=== PATIENT | female | born 1985 | race Caucasian/White ===

== ENCOUNTER 2021-08-24 11:34 | Inpatient (IN) ==
[2021-08-24] MEDS ORDERED: LABETALOL HCL IV 5 MG/ML 20ML IV STA ×2 (11:59→13:57)
[2021-08-24] MEDS ORDERED: OXYTOCIN 30 UNITS/500 ML BAG IV PRN ×2 (12:02→23:54)
[2021-08-24 12:19] LABS: Basophils # (auto) 0.04 K/uL (0-0.2); Basophils % (auto) 0.4 %; Eosinophils # (auto) 0.11 K/uL (0-0.5); Hematocrit (blood only) 35.9 % (37-47); Hemoglobin 12.5 g/dL (12.0-16.0); Immature Granulocytes # (auto) 0.15 K/uL (0.00-0.02); Immature Granulocytes % (auto) 1.4 %; Lymphocytes # (auto) 1.69 K/uL (1.2-3.4); Lymphocytes % (auto) 15.8 %; Mean Corpuscular Hemoglobin 31.3 pg (25-34); Mean Corpuscular Hgb Conc 34.8 g/dL (32-36); Mean Corpuscular Volume 89.8 fL (80-100); Mean Platelet Volume 10.5 fL (7.4-10.4); Monocytes # (auto) 0.51 K/uL (0.11-0.59); Monocytes % (auto) 4.8 %; Neutrophils # (auto) 8.19 K/uL (1.4-6.5); Neutrophils % (auto) 76.6 %; Platelet Count 117 K/uL (130-400); RDW Coefficient of Variation 12.8 % (11.5-14.5); White Blood Count 10.69 K/uL (4.8-10.8)
[2021-08-24] MEDS: LACTATED RINGER'S 1,000 ML IV SCH (12:30)
[2021-08-24 12:40] LABS: Alanine Aminotransferase 15 U/L (7-52); Albumin Globulin Ratio 1.3 (0.9-2); Albumin Level 3.5 gm/dl (3.4-5.0); Alkaline Phosphatase 130 U/L (34-104); Anion Gap 9 (3-11); Aspartate Aminotransferase 17 U/L (13-39); Bilirubin,Total 0.4 mg/dl (0.2-1.0); Blood Urea Nitrogen 8 mg/dl (6-23); Calcium 8.8 mg/dl (8.5-10.1); Carbon Dioxide 24 mmol/L (21-32); Chloride 104 mmol/L (98-107); Est GFR (African American) 139.2 ml/min; Est GFR (Non-African American) 120.1 ml/min; Globulin 2.7 gm/dl (2.5-4.0); Glucose 71 mg/dl (70-99(Fasting)); Potassium 3.6 mmol/L (3.5-5.1); Sodium 137 mmol/L (136-145); Total Protein 6.2 gm/dl (6.0-8.3)
[2021-08-24] MEDS ORDERED: miSOPROStoL 25 MCG TAB PV ONE ×2 (12:52→18:14)
[2021-08-24] MEDS ORDERED: MAG SULFATE 4GM BOLUS FROM BAG IV ONE (12:53)
[2021-08-24 12:57] LABS: Creatinine Urine Random 41.9 mg/dl; Protein Creatinine Ratio Urine 0.2 (0-0.2); Total Protein Urine Random 7.6 mg/dl (0-11.9)
[2021-08-24] MEDS ORDERED: ceFAZolin 2000MG 2,000 MG/15 ML SYR IV STA (13:03)
--- NOTE | 2021-08-24 13:03 | History & Physical Report ---
Date of Service August 24, 2021 Assessment & Plan (1) Gestational hypertension: Plan: She had 3+ DTR in the office, for me is 2+ without clonus and without significant edema, and JERONIMO has been resolving. However there is still RUQ ttp, initial labs show platelets borderline low at 117, and remaining labs pending. Initial BP x3 values in severe range, and IV labetalol x1 dose of 20mg has now been given on my order. I discussed the most likely diagnosis given all of the above being gHTN with severe features, despite some labs not being returned yet, and that this indicates for IOL and magnesium therapy. The patient accepts both. Cervix cl/th/hi indicates start with PV cytotec, which was explained to patient, who accepts. GBS antibiotics due to status unknown and gestational age; will use Ancef once in active labor given non-anaphylactic PCN allergy. Admission and Anticipated Discharge Date Admission Date: August 24, 2021 History of Present Illness Primary Care Provider: Joshua Pinzon 35yo at 35w0d with SIUP, sent from office for HTN without proteinuria but featuring RUQ pain and recent headaches and nausea. On admission, continues to have RUQ pain, the headache from this morning has waned without treatment, and nausea is not currently occurring but has been "every other day." She has good FM, no ctx and no LOF/VB. Although she had HTN in her late teens, she was normotensive off meds at the start of this and has not merited management as cHTN. Her only complication to date has been AMA (35yo). Allergies Allergy/AdvReac Type Severity Reaction Status Date / Time Penicillins Allergy Unknown Rash Verified 08/24/21 12:00 Sulfa (Sulfonamide Allergy Unknown Rash Verified 08/24/21 12:00 Antibiotics) Home Medications Medication Instructions Recorded Confirmed Type famotidine 20 mg tablet (Pepcid) 20 mg PO DAILY 08/24/21 08/24/21 History ondansetron HCl 4 mg tablet 4 mg PO Q6H PRN 08/24/21 08/24/21 History rirawcfy-uji-Rd-FA 1 mg 1 tab PO DAILY 08/24/21 08/24/21 History tablet sertraline 100 mg tablet (Zoloft) 200 mg PO DAILY 08/24/21 08/24/21 History Past Med/Surg History Medical History (Updated 08/24/21 @ 12:59 by Marianne Rubio MD) Hypertension history of hypertension at age 19. Was on lisinopril for approximately 2 years. Borderline HBP since Surgical History Hx of tonsillectomy [place] teeth extracted Family History Mother Breast cancer Grandfather (Paternal) Colonic polyp Other Diabetes Hypertension Osteoporosis Denies family history of Ovarian cancer Social History (Updated 02/10/21 @ 09:59 by Emily Hogan) Smoking Status: Never smoker marital status: marital status details: Jr (35) [phone] Current Living Situation: Spouse Current Living Situation Comment: lives with spouse, 1 dog. current occupational status: employed current occupation: professor @ [employer] Physical Exam Constitutional: WD/WN, vitals as above Eyes: PERRL, conjunctivae normal, anicteric sclerae ENMT: external ear and nose normal, oropharynx normal Neck: supple Respiratory: normal respiratory effort and able to speak in complete sentences; no respiratory distress Cardiovascular: Rate/Rhythm: regular rate and regular rhythm Gastrointestinal (Abdomen): Gravid / AGA, nontender at uterus but RUQ TTP and worse with inspiration bringing liver edge down to examiner's hand Musculoskeletal: no cyanosis or clubbing, extremities motor strength 5/5 Skin: no rashes, warm and dry Neurologic: patellar DTR's 2+ bilat, sensation intact Psychiatric: A+Ox3, euthymic affect Genitourinary: Speculum/Bimanual Exam: no vaginal lesions, no vaginal bleeding and uterus nontender OB Exam Abdomen: + vertex and + estimated weight (7) Manual OB Exam: + cervical dilation (closed), + cervical effacement (Thick), + station high and + amniotic fluid (No leaking evident) OB Exam Monitor Tracing: + external FHT monitor used, + external uterine monitor used and + category I Lymphatic: no cervical or axillary lymphadenopathy Results & Data Results & Data ([facility]) Vital Signs (Past 12 Hours) Vital Signs Pulse BP 08/24/21 12:51 73 154/106 H 08/24/21 12:47 73 170/115 H 08/24/21 12:41 78 173/120 H 08/24/21 12:37 71 170/116 H 08/24/21 12:22 62 169/108 H 08/24/21 12:07 67 162/108 H 08/24/21 11:47 74 172/108 H 08/24/21 11:46 75 172/110 H Laboratory Results Laboratory Results - last 24 hr 08/24/21 08/24/21 08/24/21 12:09 12:09 Unknown WBC 10.69 RBC 4.00 L Hgb 12.5 Hct 35.9 L MCV 89.8 MCH 31.3 MCHC 34.8 RDW Std Deviation 41.0 RDW Coeff of Amado 12.8 Plt Count 117 L MPV 10.5 H Immature Gran % (Auto) 1.4 Neut % (Auto) 76.6 Lymph % (Auto) 15.8 [place] % (Auto) 4.8 Eos % (Auto) 1.0 Baso % (Auto) 0.4 Neut # (Auto) 8.19 H Lymph # (Auto) 1.69 [place] # (Auto) 0.51 Eos # (Auto) 0.11 Baso # (Auto) 0.04 Immature Gran # (Auto) 0.15 H Sodium 137 Potassium 3.6 Chloride 104 Carbon Dioxide 24 Anion Gap 9 BUN 8 Creatinine 0.57 L Est Cr Clr Drug Dosing Not Reportable Est GFR ( Amer) 139.2 Est GFR (Non-Af Amer) 120.1 BUN/Creatinine Ratio 14.0 Glucose 71 Calcium 8.8 Total Bilirubin 0.4 AST 17 ALT 15 Alkaline Phosphatase 130 H Total Protein 6.2 Albumin 3.5 Globulin 2.7 Albumin/Globulin Ratio 1.3 Ur Random Creatinine 41.9 U Random Total Protein 7.6 Protein/Creatinin Ratio 0.2 SARS-CoV-2, RNA, NAAT 08/24/21 Unknown WBC RBC Hgb Hct MCV MCH MCHC RDW Std Deviation RDW Coeff of Amado Plt Count MPV Immature Gran % (Auto) Neut % (Auto) Lymph % (Auto) [place] % (Auto) Eos % (Auto) Baso % (Auto) Neut # (Auto) Lymph # (Auto) [place] # (Auto) Eos # (Auto) Baso # (Auto) Immature Gran # (Auto) Sodium Potassium Chloride Carbon Dioxide Anion Gap BUN Creatinine Est Cr Clr Drug Dosing Est GFR ( Amer) Est GFR (Non-Af Amer) BUN/Creatinine Ratio Glucose Calcium Total Bilirubin AST ALT Alkaline Phosphatase Total Protein Albumin Globulin Albumin/Globulin Ratio Ur Random Creatinine U Random Total Protein Protein/Creatinin Ratio SARS-CoV-2, RNA, NAAT NEGATIVE PG Care Time/CCT Total # of Minutes Spent Total Time Spent with Patient: Total time spent is greater than 50% in coordination of care (as documented) at patient's floor/unit and/or counseling patient: Coding Level of Care Code None Diagnoses Gestational hypertension O13.9
[2021-08-24] MEDS: MAGNESIUM SULFATE / WTR 40 GM/1,000 ML BAG IV SCH (13:49)
[2021-08-24] MEDS: ACETAMINOPHEN 325 MG TAB PO PRN ×2 (18:21→22:30)
--- NOTE | 2021-08-24 18:21 | Labor Progress Brief Note ---
Date of Service August 24, 2021 Subjective Tolerated first dose of cytotec with minimal discomfort at all. Hungry, though, and hoping she can have dinner if we are still a long ways from delivery. Feeling good FM. No LOF or VB. Assessment & Plan (1) Gestational hypertension: Plan: Patient made appropriate change after 1st dose cytotec. Will have dinner, then receive 2nd dose cytotec after she has eaten. BP has been almost all below the severe range, and no further labetalol after first 2 doses shortly after she arrived. Has occasional H/A that does not correlate with worst BP, and will place prn tylenol order for that. Plan: Has made some appropriate change with 1st dose, can have dinner tray then place 2nd dose cytotec. BP has been almost all below severe range, no further labetalol given after 1st 2 doses right after admission. Patient has occasional mild JERONIMO which does not correlate w/ worst BP, and will receive tylenol prn order. Admission and Anticipated Discharge Date Admission Date: August 24, 2021 Physical Exam Genitourinary: cl/75%/-3 FHT Cat 1 [place] rare ctx Results & Data ([facility]) Vital Signs (Past 12 Hours) Vital Signs Temp Pulse Resp BP 08/24/21 18:13 76 140/88 08/24/21 18:00 75 155/90 H 08/24/21 17:43 80 135/87 08/24/21 17:28 77 140/79 08/24/21 17:13 83 148/94 H 08/24/21 17:03 98.1 F 08/24/21 17:00 98.1 F 08/24/21 16:58 83 146/90 H 08/24/21 16:43 73 157/95 H 08/24/21 16:28 73 157/94 H 08/24/21 16:13 72 144/89 H 08/24/21 15:58 74 159/101 H 08/24/21 15:43 74 162/99 H 08/24/21 15:28 78 168/99 H 08/24/21 15:13 20 08/24/21 14:59 70 150/100 H 08/24/21 14:44 71 151/100 H 08/24/21 14:29 74 134/89 08/24/21 14:13 73 20 134/95 02/14/22 13:52 75 140/89 08/24/21 13:46 72 154/92 H 08/24/21 13:42 71 18 164/90 H 08/24/21 13:36 71 165/98 H 08/24/21 13:31 74 172/105 H 08/24/21 13:28 76 170/106 H 08/24/21 13:21 71 155/103 H 08/24/21 13:16 69 161/105 H 08/24/21 13:12 68 20 167/110 H 08/24/21 13:06 68 164/108 H 08/24/21 13:01 67 157/105 H 08/24/21 12:56 68 166/105 H 08/24/21 12:52 98.1 F 67 18 157/105 H 08/24/21 12:51 73 154/106 H 08/24/21 12:47 73 170/115 H 08/24/21 12:41 78 173/120 H 08/24/21 12:37 71 170/116 H 08/24/21 12:22 62 18 169/108 H 08/24/21 12:07 67 162/108 H 08/24/21 11:47 74 172/108 H 08/24/21 11:46 75 172/110 H 08/24/21 11:45 98.1 F 20 Laboratory Results Laboratory Results - last 24 hr 08/24/21 08/24/21 08/24/21 12:09 12:09 Unknown WBC 10.69 RBC 4.00 L Hgb 12.5 Hct 35.9 L MCV 89.8 MCH 31.3 MCHC 34.8 RDW Std Deviation 41.0 RDW Coeff of Amado 12.8 Plt Count 117 L MPV 10.5 H Immature Gran % (Auto) 1.4 Neut % (Auto) 76.6 Lymph % (Auto) 15.8 [place] % (Auto) 4.8 Eos % (Auto) 1.0 Baso % (Auto) 0.4 Neut # (Auto) 8.19 H Lymph # (Auto) 1.69 [place] # (Auto) 0.51 Eos # (Auto) 0.11 Baso # (Auto) 0.04 Immature Gran # (Auto) 0.15 H Sodium 137 Potassium 3.6 Chloride 104 Carbon Dioxide 24 Anion Gap 9 BUN 8 Creatinine 0.57 L Est Cr Clr Drug Dosing Not Reportable Est GFR ( Amer) 139.2 Est GFR (Non-Af Amer) 120.1 BUN/Creatinine Ratio 14.0 Glucose 71 Calcium 8.8 Total Bilirubin 0.4 AST 17 ALT 15 Alkaline Phosphatase 130 H Total Protein 6.2 Albumin 3.5 Globulin 2.7 Albumin/Globulin Ratio 1.3 Ur Random Creatinine 41.9 U Random Total Protein 7.6 Protein/Creatinin Ratio 0.2 SARS-CoV-2, RNA, NAAT SARS-CoV-2, RNA, NAAT NEGATIVE Coding Level of Care Code None Diagnoses Gestational hypertension O13.9
--- NOTE | 2021-08-24 19:38 | Labor Progress Brief Note ---
Date of Service August 24, 2021 Subjective Patient with vomiting after eating dinner tray. Assessment & Plan (1) Gestational hypertension: Plan: Continue IOL. Can start Ancef once active labor (with pit or rom), continue magnesium, epidural on request. Admission and Anticipated Discharge Date Admission Date: August 24, 2021 Physical Exam Genitourinary: second dose cytotec placed; no cervical change from 1800 exam. FHT Cat 1 [place] rare ctx Results & Data ([facility]) Vital Signs (Past 12 Hours) Vital Signs Temp Pulse Resp BP Pulse Ox 08/24/21 19:34 82 97 08/24/21 19:30 97.7 F 18 08/24/21 19:29 81 98 08/24/21 19:28 89 133/95 08/24/21 19:24 83 98 08/24/21 18:59 95 H 163/104 H 08/24/21 18:43 72 143/93 H 08/24/21 18:28 77 158/92 H 08/24/21 18:13 76 140/88 08/24/21 18:00 75 18 155/90 H 08/24/21 17:43 80 135/87 08/24/21 17:28 77 20 140/79 08/24/21 17:13 83 148/94 H 08/24/21 17:06 20 08/24/21 17:03 98.1 F 08/24/21 17:00 98.1 F 08/24/21 16:58 83 146/90 H 08/24/21 16:43 73 20 157/95 H 08/24/21 16:28 73 157/94 H 08/24/21 16:13 72 18 144/89 H 08/24/21 15:58 74 159/101 H 08/24/21 15:43 74 20 162/99 H 08/24/21 15:28 78 168/99 H 08/24/21 15:13 20 08/24/21 14:59 70 150/100 H 08/24/21 14:44 71 18 151/100 H 08/24/21 14:29 74 134/89 08/24/21 14:13 73 20 134/95 08/24/21 13:52 75 140/89 08/24/21 13:46 72 154/92 H 08/24/21 13:42 71 18 164/90 H 08/24/21 13:36 71 165/98 H 08/24/21 13:31 74 172/105 H 08/24/21 13:28 76 170/106 H 08/24/21 13:21 71 155/103 H 08/24/21 13:16 69 161/105 H 08/24/21 13:12 68 20 167/110 H 08/24/21 13:06 68 164/108 H 08/24/21 13:01 67 157/105 H 08/24/21 12:56 68 166/105 H 08/24/21 12:52 98.1 F 67 18 157/105 H 08/24/21 12:51 73 154/106 H 08/24/21 12:47 73 170/115 H 08/24/21 12:41 78 173/120 H 08/24/21 12:37 71 170/116 H 08/24/21 12:22 62 18 169/108 H 08/24/21 12:07 67 162/108 H 08/24/21 11:47 74 172/108 H 08/24/21 11:46 75 172/110 H 08/24/21 11:45 98.1 F 20 Coding Level of Care Code None Diagnoses Gestational hypertension O13.9
[2021-08-24] MEDS: ONDANSETRON INJ 2 MG/ML 2 ML VIAL IV PRN (19:52)
--- NOTE | 2021-08-24 23:58 | Labor Progress Brief Note ---
Date of Service August 24, 2021 Subjective Patient feeling mild menstrual-like cramps. Assessment & Plan (1) Gestational hypertension: Plan: Will start pitocin, and therefore also GBS ancef. Epidural on request. BP below severe range, no current concerning s/sx, magnesium infusion continues. Admission and Anticipated Discharge Date Admission Date: August 24, 2021 Physical Exam Genitourinary: ft/80/-2 FHT Cat 1 [place] rare ctx Results & Data ([facility]) Vital Signs (Past 12 Hours) Vital Signs Temp Pulse Resp BP Pulse Ox 08/24/21 23:53 80 99 08/24/21 23:50 82 93 08/24/21 23:48 80 98 08/24/21 23:43 73 96 08/24/21 23:40 80 91 08/24/21 23:38 83 96 08/24/21 23:33 79 96 08/24/21 23:30 98.1 F 08/24/21 23:28 78 97 08/24/21 23:25 87 131/96 08/24/21 23:23 78 96 08/24/21 23:20 16 08/24/21 23:18 77 96 08/24/21 23:13 77 96 08/24/21 23:08 78 97 08/24/21 23:07 76 94 08/24/21 23:03 77 96 08/24/21 22:58 85 98 08/24/21 22:56 79 94 08/24/21 22:55 73 141/82 H 08/24/21 22:53 77 96 08/24/21 22:48 78 98 08/24/21 22:47 73 92 08/24/21 22:43 78 97 08/24/21 22:38 78 97 08/24/21 22:33 81 96 08/24/21 22:32 85 91 08/24/21 22:30 18 08/24/21 22:28 75 97 08/24/21 22:19 88 95 08/24/21 22:14 75 97 08/24/21 22:13 76 159/99 H 08/24/21 22:10 78 94 08/24/21 22:09 75 99 08/24/21 22:04 75 98 08/24/21 22:01 82 93 08/24/21 21:59 76 133/83 96 08/24/21 21:54 75 98 08/24/21 21:49 74 99 08/24/21 21:44 79 97 08/24/21 21:43 77 136/80 08/24/21 21:39 77 98 08/24/21 21:37 75 92 08/24/21 21:34 77 97 08/24/21 21:29 76 95 08/24/21 21:28 74 131/73 08/24/21 21:24 76 96 08/24/21 21:19 79 98 08/24/21 21:15 16 08/24/21 21:14 82 98 08/24/21 21:13 75 154/99 H 08/24/21 21:09 75 97 08/24/21 21:04 76 97 08/24/21 20:59 75 97 08/24/21 20:58 73 164/90 H 08/24/21 20:54 76 98 08/24/21 20:53 80 92 08/24/21 20:49 78 100 08/24/21 20:44 79 98 08/24/21 20:43 76 145/92 H 08/24/21 20:39 74 97 08/24/21 20:34 77 97 08/24/21 20:29 76 97 08/24/21 20:28 72 146/94 H 08/24/21 20:24 73 97 08/24/21 20:19 75 98 08/24/21 20:15 16 08/24/21 20:14 71 97 08/24/21 20:13 73 143/92 H 08/24/21 20:09 72 96 08/24/21 20:07 74 92 08/24/21 20:04 74 97 08/24/21 19:59 73 97 08/24/21 19:58 71 137/89 08/24/21 19:54 72 98 08/24/21 19:49 73 98 08/24/21 19:44 81 140/92 98 08/24/21 19:39 76 97 08/24/21 19:34 82 97 08/24/21 19:30 97.7 F 18 08/24/21 19:29 81 98 08/24/21 19:28 89 133/95 08/24/21 19:24 83 98 08/24/21 18:59 95 H 163/104 H 08/24/21 18:43 72 20 143/93 H 08/24/21 18:28 77 158/92 H 08/24/21 18:13 76 18 140/88 08/24/21 18:00 75 18 155/90 H 08/24/21 17:43 80 135/87 08/24/21 17:28 77 20 140/79 08/24/21 17:13 83 148/94 H 08/24/21 17:06 20 08/24/21 17:03 98.1 F 08/24/21 17:00 98.1 F 08/24/21 16:58 83 146/90 H 08/24/21 16:43 73 20 157/95 H 08/24/21 16:28 73 157/94 H 08/24/21 16:13 72 18 144/89 H 08/24/21 15:58 74 159/101 H 08/24/21 15:43 74 20 162/99 H 08/24/21 15:28 78 168/99 H 08/24/21 15:13 20 08/24/21 14:59 70 150/100 H 08/24/21 14:44 71 18 151/100 H 08/24/21 14:29 74 134/89 08/24/21 14:13 73 20 134/95 08/24/21 13:52 75 140/89 08/24/21 13:46 72 154/92 H 08/24/21 13:42 71 18 164/90 H 08/24/21 13:36 71 165/98 H 08/24/21 13:31 74 172/105 H 08/24/21 13:28 76 170/106 H 08/24/21 13:21 71 155/103 H 08/24/21 13:16 69 161/105 H 08/24/21 13:12 68 20 167/110 H 08/24/21 13:06 68 164/108 H 08/24/21 13:01 67 157/105 H 08/24/21 12:56 68 166/105 H 08/24/21 12:52 98.1 F 67 18 157/105 H 08/24/21 12:51 73 154/106 H 08/24/21 12:47 73 170/115 H 08/24/21 12:41 78 173/120 H 02/14/22 12:37 71 170/116 H 08/24/21 12:22 62 18 169/108 H 08/24/21 12:07 67 162/108 H Coding Level of Care Code None Diagnoses Gestational hypertension O13.9
[2021-08-25] MEDS: LACTATED RINGER'S 1,000 ML IV SCH ×4 (00:26→22:45)
[2021-08-25] MEDS ORDERED: diphenhydrAMINE Capsule 25 MG CAP PO ONE (00:42)
[2021-08-25] MEDS: ACETAMINOPHEN 325 MG TAB PO PRN ×3 (05:01→16:44)
[2021-08-25] MEDS: MAGNESIUM SULFATE / WTR 40 GM/1,000 ML BAG IV SCH (06:00)
--- NOTE | 2021-08-25 06:59 | Labor Progress Brief Note ---
Date of Service August 25, 2021 Subjective Tolerating pit @ 15 with minimal discomfort, sleeping when I entered the room. After awakened, she notes RUQ pain and JERONIMO have both resolved. Feels FM. No LOF or VB. Assessment & Plan (1) Gestational hypertension: Plan: Cervix not dilating despite contractions which are reaching a pattern and pit @ 15. Cervix with significant firmness, so I think it was not as ripe as it seemed, and the further we get from cytotec doses the less soft and able to dilate it has become. Offered lund bulb placement and patient accepted. monitoring was used to ensure reassuring status. The patient was verbally consented for placement of a lund for cervical ripening, with discussion of risks, benefits and alternatives. All her questions were answered. Her legs were placed in lithotomy position. A lubricated, gloved hand was used to examine the cervix. A stylet was lubricated and inserted into a lund catheter to give it stiffness, and the lund catheter was then advanced along my fingers until it reached the external cervical os. The lund was then fed forward off of the stylet, which was itself never moved beyond the external os, such that the soft catheter advanced into the uterine cavity outside of the amnion until the balloon was definitely above the internal cervical os. The balloon was then inflated using sterile water to 35cc volume. Gentle traction was used to seat the balloon downward against the internal cervical os. My hand and the stylet were removed from the vagina, and the lund was secured to the patient's leg with a standard lund holding sticker. There was no significant bleeding or leakage of fluid. The heart tones remained reassuring after this process, which the patient tolerated well. Pitocin lowered to 3 mu/min for ripening-level use, and will see what effect the addition of lund has. May continue low dose pitocin or if tolerance and ctx pattern allow, could begin to increase pitocin again while lund in situ. Will d/w oncjordyn BLAIR this morning. Admission and Anticipated Discharge Date Admission Date: August 24, 2021 Physical Exam Genitourinary: Cvx still FT/80/-2 and actually feels noticeably firmer than at 11:30pm last night. I am now unable to wiggle a finger through it. FHT Cat 1 [place] Q4min Results & Data ([facility]) Vital Signs (Past 12 Hours) Vital Signs Temp Pulse Resp BP Pulse Ox 08/25/21 06:51 74 99 08/25/21 06:46 80 99 08/25/21 06:43 81 163/107 H 08/25/21 06:41 78 100 08/25/21 06:36 80 97 08/25/21 06:26 79 97 08/25/21 06:21 77 97 08/25/21 06:16 79 97 08/25/21 06:11 81 98 08/25/21 06:06 77 16 97 08/25/21 06:01 77 98 08/25/21 05:56 73 97 08/25/21 05:51 70 96 08/25/21 05:46 75 96 08/25/21 05:41 75 98 08/25/21 05:36 77 98 08/25/21 05:35 78 155/96 H 08/25/21 05:31 76 98 08/25/21 05:26 73 99 08/25/21 05:21 73 98 08/25/21 05:16 75 98 08/25/21 05:11 76 97 08/25/21 05:10 16 08/25/21 05:06 76 97 08/25/21 05:01 78 98 08/25/21 04:57 97.9 F 18 08/25/21 04:56 86 99 08/25/21 04:51 78 98 08/25/21 04:45 78 99 08/25/21 04:40 76 16 98 08/25/21 04:39 76 89 L 08/25/21 04:35 73 99 08/25/21 04:34 76 135/94 08/25/21 04:30 74 99 08/25/21 04:25 83 99 08/25/21 04:20 74 100 08/25/21 04:15 88 99 08/25/21 04:10 72 99 08/25/21 04:05 74 99 08/25/21 04:00 74 98 08/25/21 03:55 86 100 08/25/21 03:50 84 95 08/25/21 03:48 81 162/103 H 08/25/21 03:45 81 98 08/25/21 03:40 83 99 08/25/21 03:35 85 96 02/15/22 03:30 81 18 99 08/25/21 03:25 78 98 08/25/21 03:20 80 98 08/25/21 03:15 74 98 08/25/21 03:10 72 97 08/25/21 03:05 71 98 08/25/21 03:00 71 98 08/25/21 02:55 75 97 08/25/21 02:50 74 18 99 08/25/21 02:49 97.9 F 18 08/25/21 02:48 74 163/100 H 08/25/21 02:38 76 98 08/25/21 02:33 90 98 08/25/21 02:28 75 98 08/25/21 02:23 77 97 08/25/21 02:20 16 08/25/21 02:18 74 97 08/25/21 02:13 78 98 08/25/21 02:08 74 96 08/25/21 02:03 71 97 08/25/21 01:58 75 96 08/25/21 01:53 82 96 08/25/21 01:48 77 96 08/25/21 01:47 78 130/82 08/25/21 01:43 80 95 08/25/21 01:38 81 96 08/25/21 01:33 76 96 08/25/21 01:28 74 96 08/25/21 01:23 76 97 08/25/21 01:18 79 96 08/25/21 01:15 75 16 142/85 H 08/25/21 01:13 77 96 08/25/21 01:08 77 97 08/25/21 01:03 74 97 08/25/21 00:58 84 95 08/25/21 00:53 80 97 08/25/21 00:48 78 97 08/25/21 00:47 77 92 08/25/21 00:43 80 97 08/25/21 00:38 80 96 08/25/21 00:33 84 97 08/25/21 00:28 80 96 08/25/21 00:23 97.9 F 86 16 98 08/25/21 00:18 83 94 08/25/21 00:16 85 92 08/25/21 00:15 16 08/25/21 00:13 78 97 08/25/21 00:08 79 96 08/25/21 00:03 77 97 08/24/21 23:58 74 97 08/24/21 23:53 80 99 08/24/21 23:50 82 93 08/24/21 23:48 80 98 08/24/21 23:43 73 96 08/24/21 23:40 80 91 08/24/21 23:38 83 96 08/24/21 23:33 79 96 08/24/21 23:30 98.1 F 08/24/21 23:28 78 97 08/24/21 23:25 87 131/96 08/24/21 23:23 78 96 08/24/21 23:20 16 08/24/21 23:18 77 96 08/24/21 23:13 77 96 08/24/21 23:08 78 97 08/24/21 23:07 76 94 08/24/21 23:03 77 96 08/24/21 22:58 85 98 08/24/21 22:56 79 94 08/24/21 22:55 73 141/82 H 08/24/21 22:53 77 96 08/24/21 22:48 78 98 08/24/21 22:47 73 92 08/24/21 22:43 78 97 08/24/21 22:38 78 97 08/24/21 22:33 81 96 08/24/21 22:32 85 91 08/24/21 22:30 18 08/24/21 22:28 75 97 08/24/21 22:19 88 95 08/24/21 22:14 75 97 08/24/21 22:13 76 159/99 H 08/24/21 22:10 78 94 08/24/21 22:09 75 99 08/24/21 22:04 75 98 08/24/21 22:01 82 93 08/24/21 21:59 76 133/83 96 08/24/21 21:54 75 98 08/24/21 21:49 74 99 08/24/21 21:44 79 97 08/24/21 21:43 77 136/80 08/24/21 21:39 77 98 08/24/21 21:37 75 92 08/24/21 21:34 77 97 08/24/21 21:29 76 95 08/24/21 21:28 74 131/73 08/24/21 21:24 76 96 08/24/21 21:19 79 98 0214/22 21:15 16 08/24/21 21:14 82 98 08/24/21 21:13 75 154/99 H 08/24/21 21:09 75 97 08/24/21 21:04 76 97 08/24/21 20:59 75 97 08/24/21 20:58 73 164/90 H 08/24/21 20:54 76 98 08/24/21 20:53 80 92 08/24/21 20:49 78 100 08/24/21 20:44 79 98 08/24/21 20:43 76 145/92 H 08/24/21 20:39 74 97 08/24/21 20:34 77 97 08/24/21 20:29 76 97 08/24/21 20:28 72 146/94 H 08/24/21 20:24 73 97 08/24/21 20:19 75 98 08/24/21 20:15 16 08/24/21 20:14 71 97 08/24/21 20:13 73 143/92 H 08/24/21 20:09 72 96 08/24/21 20:07 74 92 08/24/21 20:04 74 97 08/24/21 19:59 73 97 08/24/21 19:58 71 137/89 08/24/21 19:54 72 98 08/24/21 19:49 73 98 08/24/21 19:44 81 140/92 98 08/24/21 19:39 76 97 08/24/21 19:34 82 97 08/24/21 19:30 97.7 F 18 08/24/21 19:29 81 98 08/24/21 19:28 89 133/95 08/24/21 19:24 83 98 08/24/21 18:59 95 H 163/104 H Coding Level of Care Code None Diagnoses Gestational hypertension O13.9 CPT Codes Misx Procedure Codes - 38766 Placement of cervical dilator: 12346 Placement of cervical dilator ([id number]) [employer] Miscellaneous Codes Misx Procedure Codes 19121 Placement of cervical dilator
[2021-08-25] MEDS ORDERED: LABETALOL HCL IV 5 MG/ML 20ML IV STA (07:09)
[2021-08-25] MEDS: ceFAZolin 1000MG 1,000 MG/7.5 ML SYR IV PRN ×2 (08:31→16:49)
[2021-08-25] MEDS ORDERED: BETAMETH SOD PHOS/ACETATE IA 6 MG/ML IM STA (08:36)
[2021-08-25] MEDS ORDERED: SERTRALINE HCL 100 MG TABLET PO SCH (09:00)
--- NOTE | 2021-08-25 10:55 | Labor Progress Brief Note ---
Date of Service August 25, 2021 Subjective late entry saw pt closer to 9am. resting in bed. feeling some ctx. denies other complaints. Assessment & Plan (1) 35 weeks gestation of : (2) Gestational hypertension: (3) Encounter for induction of labor: (4) GBS screening not performed: Plan: induction of labor for gestational hypertension with severe features. Treated with abx for gbs unknown status. Received roids x 1. On pitocin and lund balloon in place. Will now titrate the pitocin up to achieve regular labor pattern. Then consider arom/check status of balloon. BPs thus far noted. Patient and partner aware I am taking over care. Given chance to ask questions and deny such. Admission and Anticipated Discharge Date Admission Date: August 24, 2021 Physical Exam Constitutional: WD/WN, vitals as above Genitourinary: OB Exam Monitor Tracing: + external FHT monitor used, + external uterine monitor used (irreg), + category I and + normal FHT variability pit at 3 Results & Data ([facility]) Vital Signs (Past 12 Hours) Vital Signs Temp Pulse Resp BP Pulse Ox 08/25/21 10:46 73 98 08/25/21 10:41 74 97 08/25/21 10:36 74 97 08/25/21 10:31 69 97 08/25/21 10:30 18 08/25/21 10:26 79 96 08/25/21 10:21 82 98 08/25/21 10:16 76 98 08/25/21 10:11 72 98 08/25/21 10:06 74 98 08/25/21 10:01 77 98 08/25/21 09:57 67 131/84 08/25/21 09:56 69 99 08/25/21 09:51 67 98 08/25/21 09:46 78 92 08/25/21 09:43 72 97 08/25/21 09:38 79 98 08/25/21 09:33 76 96 08/25/21 09:30 20 08/25/21 09:28 72 97 08/25/21 09:23 74 97 08/25/21 09:18 71 97 08/25/21 09:13 67 96 08/25/21 09:06 73 96 08/25/21 09:01 73 97 08/25/21 08:59 68 177/90 H 08/25/21 08:56 72 97 08/25/21 08:51 69 98 08/25/21 08:46 67 98 08/25/21 08:41 65 144/85 H 96 08/25/21 08:37 56 L 131/74 08/25/21 08:36 60 96 08/25/21 08:31 60 140/94 99 08/25/21 08:30 18 08/25/21 08:26 76 145/97 H 95 08/25/21 08:21 63 155/100 H 97 08/25/21 08:17 62 159/99 H 08/25/21 08:16 62 97 08/25/21 08:12 69 165/99 H 08/25/21 08:11 70 97 08/25/21 08:06 67 172/96 H 97 08/25/21 08:01 72 136/93 98 08/25/21 07:56 71 142/93 H 97 08/25/21 07:51 65 152/97 H 97 08/25/21 07:46 64 143/99 H 96 08/25/21 07:41 65 138/92 97 08/25/21 07:36 73 97 08/25/21 07:35 74 163/96 H 08/25/21 07:31 77 98 08/25/21 07:26 82 98 08/25/21 07:21 75 98 08/25/21 07:20 73 184/105 H 08/25/21 07:16 75 98 08/25/21 07:11 74 100 08/25/21 07:10 80 74 L 08/25/21 07:06 76 97 08/25/21 07:05 72 185/99 H 08/25/21 07:01 79 99 08/25/21 07:00 98.1 F 18 08/25/21 06:56 78 100 08/25/21 06:55 75 90 08/25/21 06:54 72 170/107 H 08/25/21 06:51 74 99 08/25/21 06:46 80 99 08/25/21 06:43 81 163/107 H 08/25/21 06:41 78 100 08/25/21 06:36 80 97 08/25/21 06:26 79 97 08/25/21 06:21 77 97 08/25/21 06:16 79 97 08/25/21 06:11 81 98 08/25/21 06:06 77 16 97 08/25/21 06:01 77 98 08/25/21 05:56 73 97 08/25/21 05:51 70 96 08/25/21 05:46 75 96 08/25/21 05:41 75 98 08/25/21 05:36 77 98 08/25/21 05:35 78 155/96 H 08/25/21 05:31 76 98 08/25/21 05:26 73 99 08/25/21 05:21 73 98 08/25/21 05:16 75 98 08/25/21 05:11 76 97 08/25/21 05:10 16 08/25/21 05:06 76 97 08/25/21 05:01 78 98 08/25/21 04:57 97.9 F 18 08/25/21 04:56 86 99 08/25/21 04:51 78 98 08/25/21 04:45 78 99 08/25/21 04:40 76 16 98 08/25/21 04:39 76 89 L 08/25/21 04:35 73 99 08/25/21 04:34 76 135/94 08/25/21 04:30 74 99 08/25/21 04:25 83 99 08/25/21 04:20 74 100 08/25/21 04:15 88 99 08/25/21 04:10 72 99 08/25/21 04:05 74 99 08/25/21 04:00 74 98 08/25/21 03:55 86 100 08/25/21 03:50 84 95 08/25/21 03:48 81 162/103 H 08/25/21 03:45 81 98 08/25/21 03:40 83 99 08/25/21 03:35 85 96 08/25/21 03:30 81 18 99 08/25/21 03:25 78 98 08/25/21 03:20 80 98 08/25/21 03:15 74 98 08/25/21 03:10 72 97 08/25/21 03:05 71 98 08/25/21 03:00 71 98 08/25/21 02:55 75 97 08/25/21 02:50 74 18 99 08/25/21 02:49 97.9 F 18 08/25/21 02:48 74 163/100 H 08/25/21 02:38 76 98 08/25/21 02:33 90 98 08/25/21 02:28 75 98 08/25/21 02:23 77 97 08/25/21 02:20 16 08/25/21 02:18 74 97 08/25/21 02:13 78 98 08/25/21 02:08 74 96 08/25/21 02:03 71 97 08/25/21 01:58 75 96 08/25/21 01:53 82 96 08/25/21 01:48 77 96 08/25/21 01:47 78 130/82 08/25/21 01:43 80 95 08/25/21 01:38 81 96 08/25/21 01:33 76 96 08/25/21 01:28 74 96 08/25/21 01:23 76 97 08/25/21 01:18 79 96 08/25/21 01:15 75 16 142/85 H 08/25/21 01:13 77 96 08/25/21 01:08 77 97 08/25/21 01:03 74 97 08/25/21 00:58 84 95 08/25/21 00:53 80 97 08/25/21 00:48 78 97 08/25/21 00:47 77 92 08/25/21 00:43 80 97 08/25/21 00:38 80 96 08/25/21 00:33 84 97 08/25/21 00:28 80 96 08/25/21 00:23 97.9 F 86 16 98 08/25/21 00:18 83 94 08/25/21 00:16 85 92 08/25/21 00:15 16 08/25/21 00:13 78 97 08/25/21 00:08 79 96 08/25/21 00:03 77 97 08/24/21 23:58 74 97 08/24/21 23:53 80 99 08/24/21 23:50 82 93 08/24/21 23:48 80 98 08/24/21 23:43 73 96 08/24/21 23:40 80 91 08/24/21 23:38 83 96 08/24/21 23:33 79 96 08/24/21 23:30 98.1 F 08/24/21 23:28 78 97 02/14/22 23:25 87 131/96 08/24/21 23:23 78 96 08/24/21 23:20 16 08/24/21 23:18 77 96 08/24/21 23:13 77 96 08/24/21 23:08 78 97 08/24/21 23:07 76 94 08/24/21 23:03 77 96 08/24/21 22:58 85 98 08/24/21 22:56 79 94 08/24/21 22:55 73 141/82 H 08/24/21 22:53 77 96 Coding Level of Care Code None Diagnoses Gestational hypertension O13.9 Encounter for induction of labor Z34.90 GBS screening not performed 35 weeks gestation of Z3A.35
[2021-08-25] MEDS ORDERED: SODIUM CHLORIDE 0.9% INJ 10 ML VIAL ONE (14:02)
[2021-08-25] MEDS ORDERED: fentaNYL citrate 100 MCG/2 ML VIAL ONE (14:02)
[2021-08-25] MEDS ORDERED: ePHEDrine sulfate 50 MG/ML AMP ONE (14:02)
[2021-08-25] MEDS ORDERED: BUPIVACAINE 0.25% 30 ML VIAL ONE (14:02)
[2021-08-25] MEDS ORDERED: fentaNYL 2MCG/ML ROPIVACAINE 1.25MG/ML 100 ML BAG EPI ONE (14:02)
[2021-08-25 14:22] LABS: Hematocrit (blood only) 37.4 % (37-47); Hemoglobin 13.2 g/dL (12.0-16.0); Mean Corpuscular Hemoglobin 31.8 pg (25-34); Mean Corpuscular Volume 90.1 fL (80-100); Mean Platelet Volume 10.7 fL (7.4-10.4); Platelet Count 133 K/uL (130-400); RDW Coefficient of Variation 12.8 % (11.5-14.5); RDW Standard Deviation 41.6 fL (36.4-46.3); Red Blood Count 4.15 M/uL (4.2-5.4); White Blood Count 14.37 K/uL (4.8-10.8)
[2021-08-25 14:46] LABS: Mean Corpuscular Hgb Conc 35.3 g/dL (32-36)
--- NOTE | 2021-08-25 15:46 | Anesthesiology Consultation ---
Date of Service August 25, 2021 Assessment & Plan (1) Encounter for pre-operative examination: Chart Review Chart Review: Acceptable Risk for Labor Epidural Consults Requested none ASA ASA3 Proposed Anesthesia Anesthesia Type: Labor Epidural Risk / Benefits Reviewed With: PT / POA / Parent / Guardian, Accepts Plan and Informed Consent Obtained History Height/Weight Height: 5 ft 8 in Weight: 79.832 kg Allergies Allergy/AdvReac Type Severity Reaction Status Date / Time Penicillins Allergy Unknown Rash Verified 08/24/21 12:00 Sulfa (Sulfonamide Allergy Unknown Rash Verified 08/24/21 12:00 Antibiotics) Medications Home Medications Medication Instructions Recorded Confirmed Last Taken famotidine 20 mg tablet (Pepcid) 20 mg PO DAILY 08/24/21 08/24/21 08/23/21 18:00 ondansetron HCl 4 mg tablet 4 mg PO Q6H PRN 08/24/21 08/24/21 08/21/21 09:00 [id number] 1 mg 1 tab PO DAILY 08/24/21 08/24/21 08/22/21 10:00 tablet sertraline 100 mg tablet (Zoloft) 200 mg PO DAILY 08/24/21 08/24/21 08/23/21 20:00 Active Medications Generic Name Dose Route Start Last Admin Trade Name Rufinoq PRN Reason Stop Dose Admin Acetaminophen 650 mg 08/24/21 18:13 08/25/21 11:49 Acetaminophen 325 Mg Tab PO 09/23/21 18:12 650 mg Q4H PRN Administration headache Lactated Ringer's 1,000 mls @ 50 mls/hr 08/24/21 12:00 08/25/21 15:13 Lr IV 09/23/21 11:59 75 mls/hr .Q20H JANNETTE Administration Magnesium Sulfate 40 gm in 1,000 mls @ 50 mls/hr 08/24/21 13:00 08/25/21 07:06 Magnesium Sulfate / Wtr IV 09/23/21 12:59 50 mls/hr .Q20H JANNETTE Infusion Cefazolin Sodium 1,000 mg in 7.5 mls @ 2.5 mls/min 08/24/21 20:03 08/25/21 08:31 Ancef 1000mg IV 09/03/21 20:02 2.5 mls/min Q8H PRN Administration GBS(+) Until Delivery Oxytocin 30 units in 500 mls @ 17 mls/hr 08/24/21 23:54 08/25/21 14:11 Pitocin IV 08/26/21 23:53 1.02 units/hr .Q24H PRN 17 mls/hr Labor Induction/Augmentation Titration Protocol 1.02 UNITS/HR Ondansetron HCl 4 mg 08/24/21 19:34 08/24/21 19:52 Ondansetron Inj 2 Mg/Ml 2 Ml Vial IV 09/23/21 19:33 4 mg Q4H PRN Administration Nausea Sertraline HCl 200 mg 08/25/21 09:00 08/25/21 08:30 Sertraline Hcl 100 Mg Tablet PO 09/24/21 08:59 200 mg DAILY JANNETTE Administration Past Medical History Medical History Hypertension history of hypertension at age 19. Was on lisinopril for approximately 2 years. Borderline HBP since Exercise / Class Metabolic Activity II 4-5 Yardwork/Stairs/Walk up hill Past Family History Family History Mother Breast cancer Grandfather (Paternal) Colonic polyp Other Diabetes Hypertension Osteoporosis Denies family history of Ovarian cancer Past Surgical History Surgical History Hx of tonsillectomy [place] teeth extracted Past Anesthesia History No Hx of Anesthesia Complications and No Family Hx of Anesthesia Complications History of PONV No Hx of PONV and No Hx of Motion Sickness Social History Smoking Status: Never smoker Hx Alcohol Use: No Hx Substance Use: No Physical Exam Vital Signs Last Vital Signs Temp 98.1 F 08/25/21 15:30 Pulse 79 08/25/21 15:42 Resp 18 08/25/21 15:30 BP 159/95 H 08/25/21 14:57 Pulse Ox 97 08/25/21 15:42 ENMT Mouth: no dentition abnormality Thyromental Distance: > or= 3.5 Finger Breadths Mallampati Class: II Neck normal visual inspection Respiratory normal respiratory effort Auscultation: lungs clear to auscultation bilaterally Cardiovascular Rate/Rhythm: regular rate and regular rhythm Testing Laboratory Results 08/25/21 14:14 08/24/21 12:09
[2021-08-25] MEDS ORDERED: fentaNYL 2MCG/ML ROPIVACAINE 1.25MG/ML 100 ML BAG EPI PRN (16:05)
[2021-08-25] MEDS ORDERED: NALOXONE HCL 0.4 MG/1 ML VIAL/CARP IV PRN (16:05)
[2021-08-25] MEDS ORDERED: ePHEDrine sulfate 50 MG/ML AMP IV PRN (16:05)
[2021-08-25] MEDS ORDERED: NALOXONE HCL 1 MG in SODIUM CHLORIDE 0.9% 1000ML 1,000 ML IV PRN (16:05)
[2021-08-25] MEDS ORDERED: diphenhydrAMINE 50 MG/ML VIAL IV PRN (16:05)
[2021-08-25] MEDS ORDERED: NALBUPHINE HCL INJ 10 MG/ML AMP IV PRN (16:05)
[2021-08-25] MEDS ORDERED: ONDANSETRON INJ 2 MG/ML 2 ML VIAL IV PRN ×2 (16:05→18:59)
--- NOTE | 2021-08-25 17:21 | Labor Progress Brief Note ---
Date of Service August 25, 2021 Subjective comfortable after epidural denies botello or any sx that concern her Assessment & Plan (1) Supervision of elderly primigravida: (2) Gestational hypertension: (3) Encounter for induction of labor: (4) 35 weeks gestation of : (5) GBS screening not performed: Plan: will see how arom helps labor. fhts categ 1. patient denies any ?s or concerns. Admission and Anticipated Discharge Date Admission Date: August 24, 2021 Physical Exam Constitutional: WD/WN, vitals as above Psychiatric: A+Ox3, euthymic affect Genitourinary: Manual OB Exam: + cervical dilation 2 cm, + cervical effacement 80%, + station -2 and + amniotic fluid (Arom) clear OB Exam Monitor Tracing: + external FHT monitor used, + external uterine monitor used, + category I and + normal FHT variability Results & Data ([facility]) Vital Signs (Past 12 Hours) Vital Signs Temp Pulse Resp BP Pulse Ox 08/25/21 17:14 74 155/97 H 08/25/21 17:12 82 138/92 99 08/25/21 17:10 75 147/95 H 08/25/21 17:08 76 144/92 H 08/25/21 17:07 75 97 08/25/21 17:06 77 140/90 08/25/21 17:04 75 149/94 H 08/25/21 17:02 75 144/93 H 98 08/25/21 17:00 76 140/94 08/25/21 16:58 74 150/90 H 08/25/21 16:57 74 98 08/25/21 16:56 74 151/99 H 08/25/21 16:54 80 147/91 H 08/25/21 16:52 78 137/90 98 08/25/21 16:50 82 138/91 08/25/21 16:48 75 139/88 08/25/21 16:47 76 98 08/25/21 16:46 80 136/88 08/25/21 16:44 78 139/90 08/25/21 16:42 80 126/83 97 08/25/21 16:40 80 137/88 08/25/21 16:38 83 123/79 08/25/21 16:37 83 96 08/25/21 16:36 83 132/81 08/25/21 16:34 84 142/88 H 08/25/21 16:32 99 H 97 08/25/21 16:30 89 101/82 08/25/21 16:28 68 95/69 L 81 L 08/25/21 16:27 62 100 08/25/21 16:26 78 149/92 H 08/25/21 16:24 85 140/86 08/25/21 16:22 84 143/80 H 100 08/25/21 16:20 82 150/91 H 08/25/21 16:18 89 147/86 H 89 L 08/25/21 16:17 90 99 08/25/21 16:16 89 144/90 H 08/25/21 16:14 86 149/90 H 08/25/21 16:12 83 144/88 H 98 08/25/21 16:10 83 146/89 H 08/25/21 16:08 89 142/88 H 08/25/21 16:07 86 97 08/25/21 16:06 82 144/87 H 08/25/21 16:04 85 145/89 H 08/25/21 16:02 82 150/94 H 97 08/25/21 16:00 86 144/97 H 08/25/21 15:57 78 162/94 H 98 08/25/21 15:52 83 96 08/25/21 15:47 82 98 08/25/21 15:45 91 H 91 08/25/21 15:42 79 97 08/25/21 15:37 78 95 08/25/21 15:32 77 98 08/25/21 15:30 98.1 F 18 08/25/21 15:27 81 97 08/25/21 15:22 75 96 08/25/21 15:17 75 97 08/25/21 15:12 74 97 08/25/21 15:07 74 97 08/25/21 15:02 71 98 08/25/21 14:57 69 159/95 H 99 08/25/21 14:52 68 99 08/25/21 14:47 79 97 08/25/21 14:39 72 98 08/25/21 14:34 75 98 08/25/21 14:30 18 08/25/21 14:29 72 97 08/25/21 14:24 77 96 08/25/21 14:19 72 97 08/25/21 14:14 74 98 08/25/21 14:09 77 98 08/25/21 14:04 74 98 08/25/21 13:59 76 99 08/25/21 13:57 72 153/95 H 08/25/21 13:54 75 98 08/25/21 13:49 79 97 08/25/21 13:44 85 97 08/25/21 13:39 77 96 08/25/21 13:34 87 96 08/25/21 13:30 97.5 F L 18 08/25/21 13:29 88 97 08/25/21 13:24 74 98 08/25/21 13:19 73 97 08/25/21 13:14 73 98 08/25/21 13:09 77 95 08/25/21 13:04 73 96 08/25/21 12:59 78 95 08/25/21 12:57 70 142/90 H 08/25/21 12:54 74 96 08/25/21 12:49 70 97 08/25/21 12:44 67 96 08/25/21 12:39 68 95 08/25/21 12:34 68 96 08/25/21 12:30 18 08/25/21 12:29 67 96 08/25/21 12:24 74 96 08/25/21 12:19 68 96 08/25/21 12:14 68 95 08/25/21 12:09 68 95 08/25/21 12:04 68 95 08/25/21 11:59 70 95 08/25/21 11:58 67 148/95 H 08/25/21 11:54 68 95 08/25/21 11:49 71 97 08/25/21 11:44 70 96 08/25/21 11:40 72 148/99 H 08/25/21 11:39 76 96 08/25/21 11:30 97.7 F 20 08/25/21 11:21 91 H 97 08/25/21 11:16 100 H 97 08/25/21 11:15 90 90 08/25/21 11:11 79 96 08/25/21 11:06 76 97 08/25/21 11:01 80 98 08/25/21 10:57 74 129/81 08/25/21 10:56 72 98 08/25/21 10:51 75 96 08/25/21 10:46 73 98 08/25/21 10:41 74 97 08/25/21 10:36 74 97 08/25/21 10:31 69 97 08/25/21 10:30 18 08/25/21 10:26 79 96 08/25/21 10:21 82 98 08/25/21 10:16 76 98 08/25/21 10:11 72 98 08/25/21 10:06 74 98 08/25/21 10:01 77 98 08/25/21 09:57 67 131/84 08/25/21 09:56 69 99 08/25/21 09:51 67 98 08/25/21 09:46 78 92 08/25/21 09:43 72 97 08/25/21 09:38 79 98 08/25/21 09:33 76 96 08/25/21 09:30 20 08/25/21 09:28 72 97 08/25/21 09:23 74 97 08/25/21 09:18 71 97 08/25/21 09:13 67 96 08/25/21 09:06 73 96 08/25/21 09:01 73 97 08/25/21 08:59 68 177/90 H 08/25/21 08:56 72 97 08/25/21 08:51 69 98 08/25/21 08:46 67 98 08/25/21 08:41 65 144/85 H 96 08/25/21 08:37 56 L 131/74 08/25/21 08:36 60 96 08/25/21 08:31 60 140/94 99 08/25/21 08:30 18 08/25/21 08:26 76 145/97 H 95 08/25/21 08:21 63 155/100 H 97 08/25/21 08:17 62 159/99 H 08/25/21 08:16 62 97 08/25/21 08:12 69 165/99 H 08/25/21 08:11 70 97 08/25/21 08:06 67 172/96 H 97 08/25/21 08:01 72 136/93 98 08/25/21 07:56 71 142/93 H 97 08/25/21 07:51 65 152/97 H 97 08/25/21 07:46 64 143/99 H 96 02/15/22 07:41 65 138/92 97 08/25/21 07:36 73 97 08/25/21 07:35 74 163/96 H 08/25/21 07:31 77 98 08/25/21 07:26 82 98 08/25/21 07:21 75 98 08/25/21 07:20 73 184/105 H 08/25/21 07:16 75 98 08/25/21 07:11 74 100 08/25/21 07:10 80 74 L 08/25/21 07:06 76 97 08/25/21 07:05 72 185/99 H 08/25/21 07:01 79 99 08/25/21 07:00 98.1 F 18 08/25/21 06:56 78 100 08/25/21 06:55 75 90 08/25/21 06:54 72 170/107 H 08/25/21 06:51 74 99 08/25/21 06:46 80 99 08/25/21 06:43 81 163/107 H 08/25/21 06:41 78 100 08/25/21 06:36 80 97 08/25/21 06:26 79 97 08/25/21 06:21 77 97 08/25/21 06:16 79 97 08/25/21 06:11 81 98 08/25/21 06:06 77 16 97 08/25/21 06:01 77 98 08/25/21 05:56 73 97 08/25/21 05:51 70 96 08/25/21 05:46 75 96 08/25/21 05:41 75 98 08/25/21 05:36 77 98 08/25/21 05:35 78 155/96 H 08/25/21 05:31 76 98 08/25/21 05:26 73 99 08/25/21 05:21 73 98 Coding Level of Care Code None Diagnoses Supervision of elderly primigravida O09.519 Gestational hypertension O13.9 Encounter for induction of labor Z34.90 35 weeks gestation of Z3A.35 GBS screening not performed
[2021-08-25] MEDS: ONDANSETRON INJ 2 MG/ML 2 ML VIAL IV PRN (19:26)
[2021-08-25] MEDS ORDERED: NURSING L&D Epidural Breakthrough Pain Update ONE (20:00)
--- NOTE | 2021-08-25 20:52 | Labor Progress Brief Note ---
Date of Service August 25, 2021 Subjective pt comfortable. denies botello, visual change. feels off from mag but no severe sx. Assessment & Plan (1) 35 weeks gestation of : (2) GBS screening not performed: (3) Encounter for induction of labor: (4) Gestational hypertension: Plan: good cx change. c/w pit. c/w abx for gbs pos. plan 2nd dose of betamethasone at 24hr. c/w mag, great urine output. Admission and Anticipated Discharge Date Admission Date: August 24, 2021 Physical Exam Constitutional: WD/WN, vitals as above Genitourinary: Manual OB Exam: + cervical dilation 2 cm, + cervical effacement 100% and + station 0 OB Exam Monitor Tracing: + external FHT monitor used (+scalp stim response), + external uterine monitor used (q3 pit at 23), + category I and + normal FHT variability Results & Data ([facility]) Vital Signs (Past 12 Hours) Vital Signs Temp Pulse Resp BP Pulse Ox 08/25/21 20:47 87 98 08/25/21 20:42 91 H 96 08/25/21 20:37 92 H 96 08/25/21 20:36 88 132/73 08/25/21 20:32 88 98 08/25/21 20:30 18 08/25/21 20:27 92 H 97 08/25/21 20:22 90 97 08/25/21 20:21 88 132/75 08/25/21 20:17 90 97 08/25/21 20:12 84 98 08/25/21 20:07 89 96 08/25/21 20:05 78 18 153/89 H 08/25/21 20:03 18 08/25/21 20:02 80 98 08/25/21 20:00 18 08/25/21 19:57 85 97 08/25/21 19:52 81 99 08/25/21 19:50 81 150/94 H 08/25/21 19:47 81 98 08/25/21 19:42 78 98 08/25/21 19:37 75 98 08/25/21 19:35 84 170/104 H 08/25/21 19:32 87 98 08/25/21 19:30 18 08/25/21 19:27 109 H 97 08/25/21 19:22 75 94 08/25/21 19:21 75 151/95 H 08/25/21 19:17 75 100 08/25/21 19:15 98.4 F 18 08/25/21 19:12 79 100 08/25/21 19:07 73 98 08/25/21 19:05 76 157/86 H 08/25/21 19:02 74 99 08/25/21 19:00 18 08/25/21 18:57 79 98 08/25/21 18:52 77 156/75 H 98 08/25/21 18:47 79 99 08/25/21 18:42 79 97 08/25/21 18:37 91 H 97 08/25/21 18:35 79 148/91 H 08/25/21 18:32 78 99 08/25/21 18:30 20 08/25/21 18:29 77 88 L 08/25/21 18:27 80 97 08/25/21 18:22 83 137/80 98 08/25/21 18:17 84 97 08/25/21 18:12 104 H 96 08/25/21 18:07 78 151/86 H 100 08/25/21 18:02 78 98 08/25/21 18:00 18 08/25/21 17:57 75 99 08/25/21 17:52 72 148/82 H 98 08/25/21 17:47 71 98 08/25/21 17:42 86 95 08/25/21 17:37 80 96 08/25/21 17:34 77 142/87 H 08/25/21 17:32 77 139/87 96 08/25/21 17:30 98.1 F 75 18 139/87 08/25/21 17:28 75 148/88 H 08/25/21 17:27 74 97 08/25/21 17:26 75 154/89 H 08/25/21 17:24 77 143/92 H 08/25/21 17:22 75 147/92 H 97 08/25/21 17:20 76 148/89 H 08/25/21 17:18 74 147/93 H 08/25/21 17:17 74 99 08/25/21 17:16 75 155/94 H 08/25/21 17:14 74 155/97 H 08/25/21 17:12 82 138/92 99 08/25/21 17:10 75 147/95 H 08/25/21 17:08 76 144/92 H 08/25/21 17:07 75 97 08/25/21 17:06 77 140/90 08/25/21 17:04 75 149/94 H 08/25/21 17:02 75 144/93 H 98 08/25/21 17:00 76 18 140/94 08/25/21 16:58 74 150/90 H 08/25/21 16:57 74 98 08/25/21 16:56 74 151/99 H 08/25/21 16:54 80 147/91 H 08/25/21 16:52 78 137/90 98 08/25/21 16:50 82 138/91 08/25/21 16:48 75 139/88 08/25/21 16:47 76 98 08/25/21 16:46 80 136/88 08/25/21 16:44 78 139/90 08/25/21 16:42 80 126/83 97 08/25/21 16:40 98.1 F 80 18 137/88 08/25/21 16:38 83 123/79 08/25/21 16:37 83 96 08/25/21 16:36 83 132/81 08/25/21 16:34 84 142/88 H 08/25/21 16:32 99 H 97 08/25/21 16:30 89 20 101/82 08/25/21 16:28 68 95/69 L 81 L 08/25/21 16:27 62 100 08/25/21 16:26 78 149/92 H 08/25/21 16:25 18 08/25/21 16:24 85 140/86 08/25/21 16:22 84 143/80 H 100 08/25/21 16:20 82 18 150/91 H 08/25/21 16:18 89 147/86 H 89 L 08/25/21 16:17 90 99 08/25/21 16:16 89 144/90 H 08/25/21 16:15 18 08/25/21 16:14 86 149/90 H 08/25/21 16:12 83 144/88 H 98 08/25/21 16:10 83 20 146/89 H 08/25/21 16:08 89 142/88 H 08/25/21 16:07 86 97 02/15/22 16:06 82 144/87 H 08/25/21 16:05 18 08/25/21 16:04 85 145/89 H 08/25/21 16:02 82 150/94 H 97 08/25/21 16:00 86 144/97 H 08/25/21 15:57 78 162/94 H 98 08/25/21 15:52 83 96 08/25/21 15:47 82 98 08/25/21 15:45 91 H 91 08/25/21 15:42 79 97 08/25/21 15:37 78 95 08/25/21 15:32 77 98 08/25/21 15:30 98.1 F 18 08/25/21 15:27 81 97 08/25/21 15:22 75 96 08/25/21 15:17 75 97 08/25/21 15:12 74 97 08/25/21 15:07 74 97 08/25/21 15:02 71 98 08/25/21 14:57 69 159/95 H 99 08/25/21 14:52 68 99 08/25/21 14:47 79 97 08/25/21 14:39 72 98 08/25/21 14:34 75 98 08/25/21 14:30 18 08/25/21 14:29 72 97 08/25/21 14:24 77 96 08/25/21 14:19 72 97 08/25/21 14:14 74 98 08/25/21 14:09 77 98 08/25/21 14:04 74 98 08/25/21 13:59 76 99 08/25/21 13:57 72 153/95 H 08/25/21 13:54 75 98 08/25/21 13:49 79 97 08/25/21 13:44 85 97 08/25/21 13:39 77 96 08/25/21 13:34 87 96 08/25/21 13:30 97.5 F L 18 08/25/21 13:29 88 97 08/25/21 13:24 74 98 08/25/21 13:19 73 97 08/25/21 13:14 73 98 08/25/21 13:09 77 95 08/25/21 13:04 73 96 08/25/21 12:59 78 95 08/25/21 12:57 70 142/90 H 08/25/21 12:54 74 96 08/25/21 12:49 70 97 08/25/21 12:44 67 96 08/25/21 12:39 68 95 08/25/21 12:34 68 96 08/25/21 12:30 18 08/25/21 12:29 67 96 08/25/21 12:24 74 96 08/25/21 12:19 68 96 08/25/21 12:14 68 95 08/25/21 12:09 68 95 08/25/21 12:04 68 95 08/25/21 11:59 70 95 08/25/21 11:58 67 148/95 H 08/25/21 11:54 68 95 08/25/21 11:49 71 97 08/25/21 11:44 70 96 08/25/21 11:40 72 148/99 H 08/25/21 11:39 76 96 08/25/21 11:30 97.7 F 20 08/25/21 11:21 91 H 97 08/25/21 11:16 100 H 97 08/25/21 11:15 90 90 08/25/21 11:11 79 96 08/25/21 11:06 76 97 08/25/21 11:01 80 98 08/25/21 10:57 74 129/81 08/25/21 10:56 72 98 08/25/21 10:51 75 96 08/25/21 10:46 73 98 08/25/21 10:41 74 97 08/25/21 10:36 74 97 08/25/21 10:31 69 97 08/25/21 10:30 18 08/25/21 10:26 79 96 08/25/21 10:21 82 98 08/25/21 10:16 76 98 08/25/21 10:11 72 98 08/25/21 10:06 74 98 08/25/21 10:01 77 98 08/25/21 09:57 67 131/84 08/25/21 09:56 69 99 08/25/21 09:51 67 98 08/25/21 09:46 78 92 08/25/21 09:43 72 97 08/25/21 09:38 79 98 08/25/21 09:33 76 96 08/25/21 09:30 20 08/25/21 09:28 72 97 08/25/21 09:23 74 97 08/25/21 09:18 71 97 08/25/21 09:13 67 96 08/25/21 09:06 73 96 08/25/21 09:01 73 97 08/25/21 08:59 68 177/90 H 08/25/21 08:56 72 97 08/25/21 08:51 69 98 Coding Level of Care Code None Diagnoses 35 weeks gestation of Z3A.35 GBS screening not performed Encounter for induction of labor Z34.90 Gestational hypertension O13.9
[2021-08-26] MEDS: ceFAZolin 1000MG 1,000 MG/7.5 ML SYR IV PRN (00:46)
[2021-08-26] MEDS ORDERED: BUPIVACAINE 0.25% 30 ML VIAL ONE (01:11)
[2021-08-26] MEDS ORDERED: fentaNYL citrate 100 MCG/2 ML VIAL ONE (01:12)
--- NOTE | 2021-08-26 01:28 | Communication Note ---
Date of Service: August 26, 2021 Patient stated having increasing labor pains. Epidural was bolused with 50mcg fentanyl and 3mL of 0.25% bupivacaine. VSS. Patient's labor pains are improved.
[2021-08-26] MEDS: MAGNESIUM SULFATE / WTR 40 GM/1,000 ML BAG IV SCH ×2 (01:56→21:01)
--- NOTE | 2021-08-26 04:34 | Delivery Summary ---
Vaginal Delivery Summary Date of Service August 26, 2021 Vaginal Delivery Summary and 2nd Degree LAC The patient dilated to complete and pushed to deliver a viable female Apgars 8 and 9 via over 2nd degree perineal laceration. Mouth and nose bulb suctioned at perineum. Body cord noted and delivered through. Shoulders and body delivered with ease. Infant was vigorous and crying at . Cord clamped at 30 seconds of life and infant to maternal abdomen where the cord was then doubly clamped and cut. Placenta delivered spontaneously and intact, three- vessel cord. Hemostasis not achieved with dilute pitocin and uterine massage and drainage of the bladder with lund. Rectal cytotec 800mcg and IM hemabate given after serial exams did not show contracted HODAN with additional clots. After this hemostasis became more adequate. Left sulcal laceration noted and it as well as 2nd degree perineal laceration repaired in usual fashion with 3-0 vicryl. Cervix intact. EBL 500 cc. Mother and baby stable in recovery. [facility] Vaginal Delivery Charge Delivery Type Details: and 2nd Degree LAC
[2021-08-26] MEDS: ONDANSETRON INJ 2 MG/ML 2 ML VIAL IV PRN ×2 (04:37→10:22)
[2021-08-26] MEDS ORDERED: BENZOCAINE 20% AER SPR 82.5 GM CAN EXT PRN (04:40)
[2021-08-26] MEDS ORDERED: HYDROCORTISONE ACETATE 25 MG SUPP PR PRN (04:40)
[2021-08-26] MEDS ORDERED: DIPHTHERIA/TETANUS/PERTUSSIS 0.5 ML SYR/VIAL IM ONE (04:40)
[2021-08-26] MEDS ORDERED: ACETAMINOPHEN 325 MG TAB PO PRN (04:40)
[2021-08-26] MEDS ORDERED: OXYTOCIN 30 UNITS/500 ML BAG IV PRN (04:40)
[2021-08-26] MEDS ORDERED: miSOPROStoL 200 MCG TAB PR ONE (04:40)
[2021-08-26] MEDS ORDERED: oxyCODONE/ACETAMINOPHEN 5mg/325mg TAB PO PRN (04:40)
[2021-08-26] MEDS ORDERED: CARBOPROST TROMETHAMINE 250 MCG/ML AMPUL IM ONE (04:40)
[2021-08-26] MEDS ORDERED: ONDANSETRON 4 MG OD TAB PO PRN (04:40)
[2021-08-26] MEDS ORDERED: OXYTOCIN 20 UNITS in LACTATED RINGER'S 1,000 ML IV SCH (04:45)
[2021-08-26] MEDS ORDERED: LABETALOL HCL IV 5 MG/ML 20ML IV STA (07:57)
--- NOTE | 2021-08-26 08:00 | Communication Note ---
Date of Service: August 26, 2021 Since delivery bps have been low 160s/100 but now increased sbp, pt without sx. great urine output. on mag pp. will give IV labetalol and consider po dosing through today. will d/w oncoming physician.
[2021-08-26] MEDS ORDERED: LABETALOL HCL IV 5 MG/ML 20ML IV ONE (08:04)
--- NOTE | 2021-08-26 08:10 | Anesthesia Procedure Note ---
Date of Service August 26, 2021 Anesthesia Post Epidural Note Vital Signs Vital Signs: Temp Pulse Resp BP Pulse Ox 36.3 C L 101 H 18 187/109 H 79 L 08/26/21 06:00 08/26/21 08:07 08/26/21 06:30 08/26/21 08:06 08/26/21 08:07 Pain Intensity Bilateral Abdomen: Pain Intensity: 8 Notes Mental Status: alert / awake / arousable Nausea / Vomiting: adequately controlled Pain: adequately controlled Airway Patency, RR, SpO2: stable & adequate BP & HR: stable & adequate Hydration State: stable & adequate Neuraxial Anesthesia: was administered and sensory block is resolving Anesthetic Complications: no major complications apparent and Pt Satisfied with anesthetic care Epidural: Removed without complications and With tip intact
[2021-08-26] MEDS: FAMOTIDINE 20 MG TAB PO SCH (08:27)
[2021-08-26] MEDS: PRENATAL VITAMIN 1 TAB PO SCH (08:27)
[2021-08-26] MEDS: SERTRALINE HCL 100 MG TABLET PO SCH (08:27)
[2021-08-26] MEDS: DOCUSATE SODIUM 100 MG CAP PO SCH ×2 (08:27→21:33)
[2021-08-26] MEDS ORDERED: BETAMETH SOD PHOS/ACETATE IA 6 MG/ML IM SCH (08:30)
[2021-08-26 10:25] LABS: Hematocrit (blood only) 32.4 % (37-47); Hemoglobin 11.3 g/dL (12.0-16.0); Mean Corpuscular Hemoglobin 31.6 pg (25-34); Mean Corpuscular Hgb Conc 34.9 g/dL (32-36); Mean Corpuscular Volume 90.5 fL (80-100); Mean Platelet Volume 10.2 fL (7.4-10.4); Platelet Count 142 K/uL (130-400); RDW Coefficient of Variation 12.7 % (11.5-14.5); RDW Standard Deviation 42.4 fL (36.4-46.3); Red Blood Count 3.58 M/uL (4.2-5.4); White Blood Count 23.48 K/uL (4.8-10.8)
[2021-08-26] MEDS: LABETALOL HCL 200 MG TAB PO SCH ×2 (10:54→21:32)
--- NOTE | 2021-08-26 11:01 | Communication Note ---
Date of Service: August 26, 2021 BPs improved after IV labetalol dose this morning, still primarily 150s. Denies JERONIMO, vision change, CP, SOB, RUQ/epigastric pain. Discussed starting low dose of labetalol 200mg PO BID as likely BPs will increase after mag comes off in the AM and pt amenable. Discussed possible need for titration as well, but will wait and see.
[2021-08-26] MEDS ORDERED: LACTATED RINGER'S 1,000 ML IV SCH (18:30)
--- NOTE | 2021-08-27 07:08 | Hospitalist Progress Note ---
Date of Service August 27, 2021 Assessment & Plan (1) Encounter for care and examination after delivery: Plan: 35yo PPD 1 s/p at 35 weeks complicated by 2nd degree laceration, gest. HTN. -Continue routine care -Vitals reviewed- afebrile -elevated BP, 145/84; labetalol 200mg PO given yesterday morning but held last night due to stable pressures; stable pressures overnight; cont. to monitor consider another labetalol dose -mag drip stopped this morning after 24 hour infusion, lund removed; she has yet to void since will cont. to monitor -h/o anemia during , stopped taking iron pills 2 months ago due to GI symptoms; Hgb 8.4, stable, supplement iron -GBS unknown 2/2 baby, tx with ancef prior to delivery -Encourage ambulation, regular diet -Pain control with ibuprofen, acetaminophen PRN -Encourage -f/u in 6 weeks with OB after discharge (2) 35 weeks gestation of : (3) Gestational hypertension: Admission and Anticipated Discharge Date Admission Date: August 24, 2021 Supervising Physician Co-Signing Physician Notes Resident Physician Supervision Note: I interviewed and examined the patient. Discussed with Dr. Cosme and agree with findings and plan as documented in the note. Any exceptions or clarifications are listed here: PP1 s/p , IOL for severe PIH. Started on labetalol 200 BID however was held last evening as BPs were normal. came off mag around 4AM, is still dtv. BPs stable this AM, will hold labetalol again but can restart if BPs increase again. Continue routine pp care Documented By: Zohreh Miner MD Subjective Ambulation: yes Voiding: not yet, lund removed this morning s/p mag drip 2/2 gest. HTN Passing Gas: no BM: no Diet Tolerance: regular w/o N/V Lochia: small Feeding Type: Current Pain Level(1-10): 2 Review of Systems Review of Systems: Denies fevers/chills. Denies dyspnea, cough. Denies chest pain. Mild breast soreness. Denies headache. Denies back pain. Physical Exam Physical Exam: General: Alert, oriented, no acute distress Cardiac: Regular rate and rhythm. No murmurs appreciated. Respiratory: Clear to auscultation b/l with good air flow entry, symmetric chest rise and fall. No wheezes or crackles. No increased work of breathing or accessory muscle use Abdomen: Soft, appropriate mild diffuse tenderness s/p , nondistended. Fundus firm and palpable at 1 cm below umbilicus. No guarding or rebound. Skin: No rashes or lesions Extremities: Warm, dry, well-perfused. No lower extremity edema, erythema or swelling. No calf tenderness. Results & Data Results & Data ([facility]) Vital Signs (Past 12 Hours) Vital Signs Temp Pulse Pulse Resp BP BP Pulse Ox 08/27/21 04:35 36.9 C 71 20 145/84 H 96 08/27/21 04:18 81 116/71 08/27/21 04:17 81 97 08/27/21 04:12 79 97 08/27/21 04:07 72 97 08/27/21 04:05 18 08/27/21 04:02 75 97 08/27/21 03:57 68 97 08/27/21 03:52 77 97 08/27/21 03:47 74 97 08/27/21 03:42 74 96 08/27/21 03:37 76 97 08/27/21 03:32 72 97 08/27/21 03:27 78 98 08/27/21 03:22 85 97 08/27/21 03:21 71 126/76 08/27/21 03:18 18 08/27/21 03:17 77 98 08/27/21 03:12 75 98 08/27/21 03:07 75 97 08/27/21 03:02 75 97 08/27/21 02:57 78 96 08/27/21 02:52 74 97 08/27/21 02:47 73 97 08/27/21 02:42 74 97 08/27/21 02:37 75 96 08/27/21 02:32 78 96 08/27/21 02:27 78 96 08/27/21 02:22 78 96 08/27/21 02:21 83 131/65 08/27/21 02:17 79 97 08/27/21 02:15 16 08/27/21 02:12 80 97 08/27/21 02:07 85 96 08/27/21 02:02 71 96 08/27/21 01:57 72 96 08/27/21 01:52 73 96 08/27/21 01:47 71 96 08/27/21 01:42 71 96 08/27/21 01:37 72 96 08/27/21 01:32 71 96 08/27/21 01:30 16 08/27/21 01:27 72 97 08/27/21 01:22 71 97 08/27/21 01:21 68 121/73 08/27/21 01:17 70 98 08/27/21 01:12 68 98 08/27/21 01:07 69 98 08/27/21 01:02 65 98 08/27/21 00:57 75 97 08/27/21 00:52 68 98 08/27/21 00:47 64 98 08/27/21 00:42 69 98 08/27/21 00:37 68 97 08/27/21 00:32 78 98 08/27/21 00:30 16 08/27/21 00:27 74 97 08/27/21 00:22 78 97 08/27/21 00:21 77 124/69 08/27/21 00:17 77 97 08/27/21 00:12 73 97 08/27/21 00:07 75 97 08/27/21 00:02 71 97 08/26/21 23:57 71 97 08/26/21 23:52 71 97 08/26/21 23:47 72 98 08/26/21 23:42 71 98 08/26/21 23:37 72 98 08/26/21 23:32 73 97 08/26/21 23:27 70 99 08/26/21 23:22 75 97 08/26/21 23:21 79 143/60 H 08/26/21 23:17 67 96 08/26/21 23:15 16 08/26/21 23:12 67 96 08/26/21 23:07 66 96 08/26/21 23:02 66 95 08/26/21 22:57 69 96 08/26/21 22:52 69 96 08/26/21 22:47 67 96 08/26/21 22:42 70 96 08/26/21 22:37 69 96 08/26/21 22:32 73 95 08/26/21 22:27 73 95 08/26/21 22:22 71 95 08/26/21 22:21 71 108/55 L 08/26/21 22:20 16 08/26/21 22:17 77 95 08/26/21 22:12 71 95 08/26/21 22:07 72 95 08/26/21 22:02 73 95 08/26/21 21:57 73 95 08/26/21 21:52 74 95 08/26/21 21:47 73 95 08/26/21 21:42 73 95 08/26/21 21:37 73 96 08/26/21 21:32 78 97 08/26/21 21:27 77 96 08/26/21 21:22 75 96 08/26/21 21:21 71 110/61 08/26/21 21:17 75 96 08/26/21 21:15 18 08/26/21 21:12 83 97 08/26/21 21:07 82 96 08/26/21 21:02 83 96 08/26/21 20:57 89 96 08/26/21 20:52 82 96 08/26/21 20:47 84 96 08/26/21 20:42 84 95 08/26/21 20:37 86 95 08/26/21 20:32 83 95 08/26/21 20:27 82 96 08/26/21 20:22 83 96 08/26/21 20:21 83 122/64 08/26/21 20:17 94 H 96 08/26/21 20:12 92 H 96 08/26/21 20:07 95 H 97 08/26/21 20:02 89 97 08/26/21 19:57 81 95 08/26/21 19:52 80 95 08/26/21 19:47 76 95 08/26/21 19:42 78 95 08/26/21 19:37 81 96 08/26/21 19:32 79 97 08/26/21 19:27 80 96 08/26/21 19:22 80 96 08/26/21 19:21 74 109/59 L 08/26/21 19:17 78 96 08/26/21 19:12 79 97 Resident Activity Tracking Resident Involvement: Resident Care Provided Care Provided: OB Delivery
[2021-08-27] MEDS: IBUPROFEN 600 MG TAB PO PRN ×2 (07:49→13:53)
[2021-08-27] MEDS: DOCUSATE SODIUM 100 MG CAP PO SCH ×2 (07:49→19:53)
[2021-08-27] MEDS: PRENATAL VITAMIN 1 TAB PO SCH (07:49)
[2021-08-27] MEDS: SERTRALINE HCL 100 MG TABLET PO SCH (08:12)
[2021-08-27] MEDS: LABETALOL HCL 200 MG TAB PO SCH ×2 (08:52→19:53)
[2021-08-28] MEDS: LABETALOL HCL 200 MG TAB PO SCH (05:58)
--- NOTE | 2021-08-28 07:06 | Hospitalist Progress Note ---
Date of Service August 28, 2021 Assessment & Plan (1) Encounter for care and examination after delivery: Plan: 35yo PPD 2 s/p at 35 weeks complicated by 2nd degree laceration, gest. HTN. -Continue routine care -GBS unknown 2/2 baby, tx with ancef prior to delivery -Vitals reviewed- afebrile -elevated BP, 155/96; inc. to labetalol 200mg TID, cont. to monitor -completed 24 hr mag drip yesterday morning for gest. HTN -Encourage ambulation, regular diet -Pain control with ibuprofen, acetaminophen PRN -Encourage -f/u 1 week OB after discharge for BP recheck (2) 35 weeks gestation of : (3) Gestational hypertension: Admission and Anticipated Discharge Date Admission Date: August 24, 2021 Supervising Physician Co-Signing Physician Notes Resident Physician Supervision Note: I was present with Dr. Timothy Cosme during the history and exam. I discussed the case with the resident and agree with the findings and plan as documented in the note. Any exceptions or clarifications are listed here: [None] Documented By: Yanique Rankin MD, FACOG Subjective Ambulation: yes Voiding: yes, lund removed yesterday morning (s/p mag drip for gest. HTN) Passing Gas: yes BM: yes Diet Tolerance: regular w/o N/V Lochia: small Feeding Type: Current Pain Level(1-10): 0 Review of Systems Review of Systems: +night sweats overnight. Denies fevers/chills. Denies dyspnea, cough. Denies chest pain. +mild breast soreness. Denies headache. Denies back pain. +mild tingling under feet bilaterally Physical Exam Physical Exam: General: Alert, oriented, no acute distress Cardiac: Regular rate and rhythm. No murmurs appreciated. Respiratory: Clear to auscultation b/l with good air flow entry, symmetric chest rise and fall. No wheezes or crackles. No increased work of breathing or access ory muscle use Abdomen: Soft, nontender, nondistended. Fundus firm and palpable at 2 cm below umbilicus. No guarding or rebound. Skin: No rashes or lesions Extremities: Warm, dry, well-perfused. No lower extremity edema, erythema or swelling. No calf tenderness. Results & Data Results & Data ([facility]) Vital Signs (Past 12 Hours) Vital Signs Temp Pulse Resp BP BP Pulse Ox 08/28/21 05:47 155/96 H 08/28/21 05:30 160/91 H 08/27/21 23:34 36.6 C 64 16 125/74 95 08/27/21 21:27 36.7 C 65 18 167/84 H Resident Activity Tracking Resident Involvement: Resident Care Provided Care Provided: OB Delivery
[2021-08-28] MEDS: DOCUSATE SODIUM 100 MG CAP PO SCH ×2 (08:35→20:42)
[2021-08-28] MEDS: PRENATAL VITAMIN 1 TAB PO SCH (08:35)
[2021-08-28] MEDS: SERTRALINE HCL 100 MG TABLET PO SCH (08:36)
[2021-08-28] MEDS: FAMOTIDINE 20 MG TAB PO SCH (08:40)
[2021-08-28] MEDS ORDERED: LABETALOL HCL 200 MG TAB PO SCH ×2 (14:00→20:00)
[2021-08-29] MEDS: FAMOTIDINE 20 MG TAB PO SCH (08:15)
[2021-08-29] MEDS: PRENATAL VITAMIN 1 TAB PO SCH (08:16)
[2021-08-29] MEDS: SERTRALINE HCL 100 MG TABLET PO SCH (08:16)
[2021-08-29] MEDS: DOCUSATE SODIUM 100 MG CAP PO SCH (08:16)
--- NOTE | 2021-08-29 08:46 | Hospitalist Progress Note ---
Date of Service August 29, 2021 Assessment & Plan (1) Encounter for care and examination after delivery: Plan: 35yo PPD 3 s/p at 35 weeks complicated by 2nd degree laceration, gest. HTN. -Continue routine care -GBS unknown 2/2 baby, tx with ancef prior to delivery -Vitals reviewed- afebrile -improving BP, 144/78; inc. to labetalol 600mg TID, cont. to monitor; if BP remains <150/<100 in afternoon, may discharge home; should continue labetalol 600mg TID at home and recheck BP in clinic 1week -completed 24 hr mag drip (08/27) for gest. HTN -Encourage ambulation, regular diet -Pain control with ibuprofen, acetaminophen PRN -Encourage -f/u 1 week OB after discharge for BP recheck (2) 35 weeks gestation of : (3) Gestational hypertension: Admission and Anticipated Discharge Date Admission Date: August 24, 2021 Supervising Physician Co-Signing Physician Notes Patient seen and evaluated and agree with the above findings and plan. BPs under good control past 24 hours. will plan for 1 week BP check. Stable for discharge Subjective Ambulation: yes Voiding: yes Passing Gas: yes BM: yes Diet Tolerance: regular w/o N/V Lochia: small Feeding Type: Current Pain Level(1-10): 0 Review of Systems Review of Systems: Denies fevers/chills. Denies dyspnea, cough. Denies chest pain. +mild breast soreness. Denies headache. Denies back pain. Physical Exam Physical Exam: General: Alert, oriented, no acute distress Cardiac: Regular rate and rhythm. No murmurs appreciated. Respiratory: Clear to auscultation b/l with good air flow entry, symmetric chest rise and fall. No wheezes or crackles. No increased work of breathing or accessory muscle use Abdomen: Soft, nontender, nondistended. Fundus firm and palpable at 2 cm below umbilicus. No guarding or rebound. Skin: No rashes or lesions Extremities: Warm, dry, well-perfused. No lower extremity edema, erythema or swelling. No calf tenderness. Results & Data Results & Data ([facility]) Vital Signs (Past 12 Hours) Vital Signs Temp Pulse Resp BP Pulse Ox 08/29/21 05:00 77 146/78 H 08/29/21 04:00 36.9 C 67 20 167/96 H 08/28/21 23:55 69 134/85 96 Resident Activity Tracking Resident Involvement: Resident Care Provided Care Provided: OB Delivery
[2021-08-29] MEDS ORDERED: LABETALOL HCL 300 MG TAB PO SCH (09:00)
== END 2021-08-29 13:05 | disposition home or self-care (01) | DRG 807 ==
LOC: OPB 11:34 → 4S1 11:35 → 4S2 08-27 04:56